=== PATIENT | male | born 1950 | race Caucasian/White ===

== ENCOUNTER → 2016-09-10 | Outpatient (CLI) | payer MEDICARE ==
[~2016-09-10] MED LIST: ASPIRIN EC325 MG PO; ASPIRIN EC81 MG PO; COUMADIN5 MG PO; HYDRALAZINE HCL50 MG PO; IMDUR ER TAB 6060 MG PO; LANOXIN TAB 00.25 MG PO; LANOXIN125 MCG PO; LOPRESSOR100 MG PO; LOPRESSOR50 MG PO; MEXITIL CAP 20200 MG PO; NITROSTAT0.4 MG SL; RANITIDINE HCL150 MG PO; ZOCOR20 MG PO; ZYLOPRIM100 MG PO
== END ==
LOC: HEART 5 09:06
DX: I25.10 Atherosclerotic heart disease of native coronary artery without angina pectoris (principal); I11.0 Hypertensive heart disease with heart failure; I50.22 Chronic systolic (congestive) heart failure; I11.9 Hypertensive heart disease without heart failure
CPT/HCPCS: 93306

== ENCOUNTER → 2020-08-07 | Outpatient (CLI) | payer MEDICARE, OTHER ==
[~2020-08-07] MED LIST changes: +BUMETANIDE2 MG PO; +BUMEX 1MG TABLET1 MG PO; +CATAPRES 0.1MG0.1 MG PO; +COREG 25MG TAB25 MG PO; +COUMADIN 7.5MG7.5 MG PO; +DIGITEK125 MCG PO; +ELIQUIS5 MG PO; +ENSURE ORIGINA237 ML PO; +FERROUS SULFAT325 M2 PO; +FUROSEMIDE40 MG PO; +HYDRALAZINE HCL25 MG PO; +LOPRESSOR 25 MG25 MG PO; +LORTAB 5-325 M1 EACH PO; +MELATONIN3 MG PO; +MEXILETINE HCL200 MG PO; +NEURONTIN100 MG PO; +NITROSTAT 0.40.4 MG SL; +NORVASC 5 MG TAB5 MG PO; +PREDNISONE 20 M20 MG PO; +PROTONIX40 MG PO; +RANEXA1000 MG PO; +REMERON15 MG PO; +REQUIP0.5 MG PO; +SIMVASTATIN20 MG PO; +TYLENOL 500 MG500 MG PO; +VITAMIN D250000 UNIT PO; +ZAROXOLYN/DIULO5 MG PO
== END ==
LOC: HEART 5 09-14 09:30
DX: I50.22 Chronic systolic (congestive) heart failure (principal); I20.9 Angina pectoris, unspecified; I25.5 Ischemic cardiomyopathy; I08.3 Combined rheumatic disorders of mitral, aortic and tricuspid valves
CPT/HCPCS: 93306

== ENCOUNTER 2021-07-19 13:38 | Inpatient (IN) | payer MEDICARE, OTHER ==
[~2021-07-19] VITALS: Ht 185.4 cm; Wt 118.4 kg
[~2021-07-19 13:38] MED LIST changes: +HYDROCODONE-AC1 EAC1 PO; -REQUIP0.5 MG PO; +ROPINIROLE HCL1 MG PO
[2021-07-20] MEDS ORDERED: CLONAZEPAM1 MG PO (02:23)
[2021-07-20] MEDS ORDERED: ALLOPURINOL100 MG PO (02:48)
[2021-07-20] MEDS ORDERED: ASPIRIN CHEWABL81 MG PO (02:48)
[2021-07-20] MEDS ORDERED: VISTARIL 25 MG25 MG PO (02:49)
[2021-07-20] MEDS ORDERED: LEVOTHYROXINE100 MCG PO (02:50)
[2021-07-20] MEDS ORDERED: MELATONIN10 M2 PO (02:51)
[2021-07-20] MEDS ORDERED: ROPINIROLE HCL0.5 MG PO (02:54)
[2021-07-20] MEDS ORDERED: AYR NASAL SPRAY50 ML (02:57)
[2021-07-20] MEDS ORDERED: DOCUSATE SODIU100 MG PO (02:57)
[2021-07-20 02:58] LABS: HEMOGLOBIN 11.2 gm/dl (14.0-17.5); RED BLOOD COUNT 3.74 M/UL (4.20-5.50); WHITE BLOOD COUNT 6.6 K/UL (4.5-11.0)
[2021-07-20] MEDS ORDERED: FLONASE 0.05% N16 GM INH (02:58)
[2021-07-20] MEDS ORDERED: CALCIUM ACETAT667 M2 PO (03:30)
[2021-07-20] MEDS ORDERED: MIDODRINE HCL10 MG PO (03:33)
[2021-07-20] MEDS ORDERED: MIDODRINE HCL5 MG PO (03:35)
[2021-07-20] MEDS ORDERED: RENVELA800 MG PO (03:36)
[2021-07-20] MEDS ORDERED: ZOFRAN ODT 4 MG4 MG PO (03:39)
[2021-07-20] MEDS ORDERED: VITAMIN D3125 MCG PO (03:41)
[2021-07-25 07:40] LABS: HEMOGLOBIN 11.5 gm/dl (14.0-17.5); RED BLOOD COUNT 3.9 M/UL (4.20-5.50); WHITE BLOOD COUNT 7.5 K/UL (4.5-11.0)
[2021-07-25] MEDS ORDERED: NEURONTIN100 MG PO (10:28)
[2021-07-25] MEDS ORDERED: MEXILETINE HCL200 MG PO (10:28)
[2021-07-25] MEDS ORDERED: HYDROCODONE-AC1 EAC1 PO (10:28)
[2021-07-25] MEDS ORDERED: CLONAZEPAM1 MG PO (10:28)
[2021-07-25] MEDS ORDERED: VISTARIL 25 MG25 MG PO (10:28)
[2021-07-25] MEDS ORDERED: LOPRESSOR 25 MG25 MG PO (10:28)
[2021-07-25] MEDS ORDERED: ATORVASTATIN CA10 MG PO (10:28)
== END 2021-07-25 15:57 | DRG 308 ==
LOC: PROG CARE 23:30 → CCU 23:30 → PROG CARE 07-22 21:59
PROVIDERS: Internal Medicine; Internal Medicine Nephrology; Physician Assistant; ADMIT Internal Medicine
PROC: B24BZZZ Ultrasonography of Heart with Aorta (ICD-10-PCS; 2021-07-23)
PROC: 5A1D70Z Performance of Urinary Filtration, Intermittent, Less than 6 Hours Per Day (ICD-10-PCS; principal; 2021-07-24)
DX: I47.2 Ventricular tachycardia (principal); N18.6 End stage renal disease; R57.0 Cardiogenic shock; E87.1 Hypo-osmolality and hyponatremia; I50.23 Acute on chronic systolic (congestive) heart failure; I13.2 Hypertensive heart and chronic kidney disease with heart failure and with stage 5 chronic kidney disease, or end stage renal disease; Z20.822 Contact with and (suspected) exposure to COVID-19; I25.10 Atherosclerotic heart disease of native coronary artery without angina pectoris; G47.33 Obstructive sleep apnea (adult) (pediatric); E03.9 Hypothyroidism, unspecified; I25.5 Ischemic cardiomyopathy; I95.9 Hypotension, unspecified; D63.1 Anemia in chronic kidney disease; I08.3 Combined rheumatic disorders of mitral, aortic and tricuspid valves; M10.9 Gout, unspecified; I48.21 Permanent atrial fibrillation; Z79.01 Long term (current) use of anticoagulants; Z96.653 Presence of artificial knee joint, bilateral; D69.6 Thrombocytopenia, unspecified; E78.5 Hyperlipidemia, unspecified; M19.90 Unspecified osteoarthritis, unspecified site; Z79.82 Long term (current) use of aspirin; Z95.1 Presence of aortocoronary bypass graft; Z99.2 Dependence on renal dialysis; Z95.810 Presence of automatic (implantable) cardiac defibrillator; Z95.2 Presence of prosthetic heart valve; Z95.5 Presence of coronary angioplasty implant and graft; Z80.1 Family history of malignant neoplasm of trachea, bronchus and lung; Z82.49 Family history of ischemic heart disease and other diseases of the circulatory system; Z80.3 Family history of malignant neoplasm of breast; Z82.3 Family history of stroke
CPT/HCPCS: ECHO; 36415; 71045; 80048; 80053; 80076; 83735; 84100; 84439; 84443; 84484; 85025; 85027; 86140; 90935; 90937; 93005; 93306; J2370; J7030